=== PATIENT | male | born 1995 | race Caucasian/White ===

== ENCOUNTER 2016-10-18 22:37 | Emergency (ER) | payer BC ==
[2016-10-18 22:06] LABS: INFLUENZA A NEG (NEG); INFLUENZA B NEG (NEG)
[~2016-10-18 22:37] MED LIST: LORATADINE PO; NASAL SPRAY; ZPAK
== END 2016-10-18 22:50 | disposition home or self-care (01) ==
LOC: SED 22:37
PROVIDERS: Emergency Medicine
DX: J11.1 Influenza due to unidentified influenza virus with other respiratory manifestations (principal); F17.200 Nicotine dependence, unspecified, uncomplicated
CPT/HCPCS: 87804; 99282